=== PATIENT | male | born 2000 | race Two or more races ===

== ENCOUNTER 2022-02-22 14:18 | Emergency (ER) | payer OTHER ==
[~2022-02-22] VITALS: Ht 175.3 cm; Wt 62.6 kg
--- NOTE | 2022-02-22 14:34 | NUR ---
CALLED TO TRIAGE, NOT READY, TALKING ON HISCELL
[2022-02-22 14:51] VITALS: BP 126/67
--- NOTE | 2022-02-22 14:57 | NUR ---
DR PAYNE W/ PT FOR EVAL
[2022-02-22] MEDS ORDERED: ACETAMINOPHEN 325 MG TABLET ONE (15:04)
[2022-02-22] MEDS ORDERED: TDAP [DIPH/PERTUSSIS/TET] 0.5 ML VIAL IM ONE ×2 (15:05→15:30)
--- NOTE | 2022-02-22 15:13 | NUR ---
TYLENOL PO AND TDAP GIVEN IM RIGHT DELTOID, NONA WELL
[2022-02-22] MEDS ORDERED: ACETAMINOPHEN 325 MG TABLET PO ONE (15:30)
[2022-02-22] MEDS ORDERED: LIDOCAINE 0.5% HCL 50 ML VIAL TP ONE (15:30)
--- NOTE | 2022-02-22 15:58 | NUR ---
DR PAYNE W/ PT FOR LAC REPAIR
[2022-02-22] MEDS ORDERED: IBUP-1953 PO (17:01)
--- NOTE | 2022-02-22 17:01 | NUR ---
tech at bedside for wound care
--- NOTE | 2022-02-22 17:47 | NUR ---
Patient discharged to home in stable condition. Written and verbal after care instructions given. Patient verbalizes understanding of instruction.
== END 2022-02-22 17:49 | disposition home or self-care (01) ==
LOC: ER 14:37
DX: S61.215A Laceration without foreign body of left ring finger without damage to nail, initial encounter (principal); Z60.2 Problems related to living alone; Z79.1 Long term (current) use of non-steroidal anti-inflammatories (NSAID); W26.8XXA Contact with other sharp object(s), not elsewhere classified, initial encounter; Y93.89 Activity, other specified; Y92.89 Other specified places as the place of occurrence of the external cause; Y99.8 Other external cause status
CPT/HCPCS: 73140-TC; 90715

== ENCOUNTER 2022-03-08 14:53 | Emergency (ER) | payer OTHER ==
[~2022-03-08] VITALS: Ht 175.3 cm; Wt 62.6 kg
[~2022-03-08 14:53] MED LIST: IBUP-1953 PO
[2022-03-08 15:11] VITALS: BP 118/56
--- NOTE | 2022-03-08 15:24 | NUR ---
DR SOLO W/ PT
[2022-03-08] MEDS ORDERED: BACITRACIN ZINC OINT PACKET 1 EA PACKET TP ONE (15:30)
--- NOTE | 2022-03-08 15:31 | NUR ---
WOUND CARE DONE AT CHAIR SIDE; ATB GINNA ADMINISTERED INDICATED.
--- NOTE | 2022-03-08 15:36 | NUR ---
Patient discharged to home in stable condition. Written and verbal after care instructions given. Patient verbalizes understanding of instruction.
== END 2022-03-08 15:37 | disposition home or self-care (01) ==
LOC: ER 14:55
DX: Z48.02 Encounter for removal of sutures (principal); Z60.2 Problems related to living alone; Z79.1 Long term (current) use of non-steroidal anti-inflammatories (NSAID)